=== PATIENT | male | born 1965 | race Caucasian/White ===

== ENCOUNTER 2017-10-17 08:10 | Emergency (ER) | payer OTHER, BC ==
--- NOTE | 2017-10-17 08:32 | EDM.PDOC ---
ED HPI GENERAL MEDICAL PROBLEM - General Chief Complaint: Upper Extremity Injury/Pain Stated Complaint: RIGHT ELBOW INJURY Time Seen by Provider: 10/17/17 08:29 - History of Present Illness INITIAL COMMENTS - FREE TEXT/NARRATIVE: 51-year-old male presents emergency room with right elbow pain. This started last night after he picked up a bucket of oil. The patient developed significant discomfort over his medial epicondyle. He has significant pain when he supinates his hand he also has some discomfort with flexion and extension of his wrist and sometimes with movement of the ulnar digits. Patient denies prior history of this in the past. He did try some Advil this morning, he took a single pill, this has not helped. Right Elbow Pain Score (Numeric/FACES): 5 - Related Data Allergies Allergy/AdvReac Type Severity Reaction Status Date / Time No Known Allergies Allergy Verified 10/17/17 08:17 Home Meds: Home Meds Aspirin [Halfprin] 81 mg PO DAILY 06/21/15 [History] Levothyroxine [Synthroid] 50 mcg PO ACBREAKFAST 06/21/15 [History] Omeprazole 20 mg PO DAILY 06/21/15 [History] SitaGLIPtin [Januvia] 100 mg PO DAILY 06/21/15 [History] Multivitamins,Therapeutic [Thera] 1 each PO WITHBREAKFAST tablet 06/13/16 [Rx] Ramipril 2.5 mg PO DAILY 10/17/17 [History] Past Medical History Other HEENT History: problems with earwax Cardiovascular History: Reports: High Cholesterol, Other (See Below) Other Cardiovascular History: "plug in my heart"----states never closed at Respiratory History: Reports: Sleep Apnea Other Respiratory History: c-pap at [facility] since 2004. Gastrointestinal History: Reports: GERD Other Gastrointestinal History: takes medication for Gerd; DX 2004. 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 Denies any deficits from the stroke. Endocrine/Metabolic History: Reports: Diabetes, Type II Other Endocrine/Metabolic History: For DM "takes a pill" and checks his blood sugar "about twice a week". Checked BS of Saturday and it was 100. Diagnosed at 2005. Diagnosed w/ Thyroid disease "about the same time". Hematologic History: Reports: Anemia, Iron Deficiency - Past Surgical History Cardiovascular Surgical History: Reports: Other (See Below) Musculoskeletal Surgical History: Reports: Arthroscopic Knee Social & Family History - Family History Oncologic: Reports: Bladder - Tobacco Use Smoking Status *Q: Never Smoker Years of Tobacco use: 15 Packs/Tins Daily: 1 Month Tobacco Last Used: 11/2013 Second Hand Smoke Exposure: No - Recreational Drug Use Recreational Drug Use: No - Living Situation & Occupation Living situation: Reports: Single, with Family Occupation: Employed Review of Systems - Review of Systems Review Of Systems: See Below Constitutional: Reports: No Symptoms Respiratory: Reports: No Symptoms Cardiovascular: Reports: No Symptoms GI/Abdominal: Reports: No Symptoms ED EXAM, GENERAL - Physical Exam Exam: See Below Exam Limited By: No Limitations General Appearance: Alert, No Apparent Distress Respiratory/Chest: No Respiratory Distress, Lungs Clear, Normal Breath Sounds Cardiovascular: Regular Rate, Rhythm, No Edema, No Murmur Extremities: Other (Examination of his right elbow show some discomfort over the medial epicondyle this is aggravated with supination especially against resistance when he holds his pinky and thumb together he has good strength however it does cause some discomfort over the medial epicondyle. Full flexion and extension of his wrist causes pain in the same areas Tinel's sign is negative. He has full motion of his digits however has some discomfort with moving the ring and pinky fingers the discomfort is over the medial epicondyle) Neurological: Alert, Oriented, Normal Cognition Course - Vital Signs Last Recorded V/S: Last Vital Signs Temp 35.6 C 10/17/17 08:14 Pulse 69 10/17/17 08:14 Resp 18 10/17/17 08:14 BP 139/93 H 10/17/17 08:14 Pulse Ox 95 10/17/17 08:14 - Re-Assessments/Exams Free Text/Narrative Re-Assessment/Exam: 10/17/17 09:21 X-ray examination is negative for acute fracture dislocation no bony changes noted he may have a little bit of medial soft tissue swelling. Patient will be started on a tennis elbow splint he'll be started on Naprosyn with follow-up the clinic early next week. 10/17/17 09:51 The patient's med list is been adjusted as multiple medications including blood thinners on his list that he has not been taking and is not aware of taking. Departure - Departure Time of Disposition: 09:22 Disposition: Home, Self-Care 01 Clinical Impression: Injury of right elbow, Strain of elbow, right - Discharge Information Referrals: Thuy Coleman, FOLDING MACHINE TENDER [Primary Care Provider] - Forms: ED Department Discharge Additional Instructions: Return to the emergency room with any questions problems or worsening symptoms. Follow up with your regular provider early next week. You have been started on Naprosyn take one twice daily with meals. Do not take any Aleve or ibuprofen with this. Discontinue this medication if it causes stomach upset. Try a tennis elbow splint.
--- NOTE | 2017-10-17 09:18 | CR ---
Right elbow: Four views of the right elbow were obtained. Comparison: No previous study. No joint effusion is seen. Joint spaces are preserved. No acute fracture or other bony abnormality is seen. Impression: 1. No bony abnormality is identified on right elbow study. Diagnostic code #1
[2017-10-17 10:33] VITALS: BP 134/90
== END 2017-10-17 10:15 | disposition home or self-care (01) ==
LOC: JD.ED 08:10
DX: S59.801A Other specified injuries of right elbow, initial encounter (principal); G47.30 Sleep apnea, unspecified; E78.00 Pure hypercholesterolemia, unspecified; K21.9 Gastro-esophageal reflux disease without esophagitis; E11.9 Type 2 diabetes mellitus without complications; Z79.82 Long term (current) use of aspirin; Z79.899 Other long term (current) drug therapy; X50.0XXA Overexertion from strenuous movement or load, initial encounter; Y99.0 Civilian activity done for income or pay
CPT/HCPCS: 73080-26-RT; 73080-RT; 99283; 99284

== ENCOUNTER 2017-12-31 09:43 | Emergency (ER) | payer OTHER, BC ==
[2017-12-31 10:13] VITALS: BP 144/90
--- NOTE | 2017-12-31 12:32 | CR ---
Right humerus: Two views of the right humerus were obtained. Joint space narrowing and mild inferior spurring is incidentally noted within the acromioclavicular joint. No fracture or other abnormality is appreciated. Impression: 1. Incidental findings as noted above. 2. No bony abnormality is seen within the right humerus. Diagnostic code #2
--- NOTE | 2017-12-31 12:46 | EDM.PDOC ---
ED HPI GENERAL MEDICAL PROBLEM - General Chief Complaint: Upper Extremity Injury/Pain Stated Complaint: R ARM PAIN Time Seen by Provider: 12/31/17 10:39 - History of Present Illness INITIAL COMMENTS - FREE TEXT/NARRATIVE: 52-year-old male presents emergency room with right arm pain. 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 He felt a pop in his right upper arm area and this reminded him of his biceps tear he had on the left a couple months ago. In between his biceps tear on the left and now I've seen this patient with tennis elbow and he's doing much better with this using his tennis elbow band. Right Upper Arm Pain Score (Numeric/FACES): 1 - Related Data Allergies Allergy/AdvReac Type Severity Reaction Status Date / Time No Known Allergies Allergy Verified 12/31/17 10:03 Home Meds: Home Meds Aspirin [Halfprin] 81 mg PO DAILY 06/21/15 [History] Levothyroxine [Synthroid] 75 mcg PO ACBREAKFAST 06/21/15 [History] Omeprazole 20 mg PO DAILY 06/21/15 [History] SitaGLIPtin [Januvia] 100 mg PO DAILY 06/21/15 [History] Multivitamins,Therapeutic [Thera] 1 each PO WITHBREAKFAST tablet 06/13/16 [Rx] Ramipril 2.5 mg PO DAILY 10/17/17 [History] Past Medical History Other HEENT History: problems with earwax Cardiovascular History: Reports: High Cholesterol, Other (See Below) Other Cardiovascular History: "plug in my heart"----states never closed at Respiratory History: Reports: Sleep Apnea Other Respiratory History: c-pap at [facility] since 2004. Gastrointestinal History: Reports: GERD Other Gastrointestinal History: takes medication for Gerd; DX 2004. 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 Denies any deficits from the stroke. Endocrine/Metabolic History: Reports: Diabetes, Type II Other Endocrine/Metabolic History: For DM "takes a pill" and checks his blood sugar "about twice a week". Checked BS of Saturday and it was 100. Diagnosed at 2004. Diagnosed w/ Thyroid disease "about the same time". Hematologic History: Reports: Anemia, Iron Deficiency - Past Surgical History Head Surgeries/Procedures: Reports: None Cardiovascular Surgical History: Reports: Other (See Below) Musculoskeletal Surgical History: Reports: Arthroscopic Knee Oncologic Surgical History: Reports: None Social & Family History - Family History Oncologic: Reports: Bladder - Tobacco Use Smoking Status *Q: Unknown Ever Smoked Years of Tobacco use: 15 Packs/Tins Daily: 1 Month Tobacco Last Used: 11/2013 Second Hand Smoke Exposure: No - Caffeine Use Caffeine Use: Reports: Coffee - Recreational Drug Use Recreational Drug Use: No - Living Situation & Occupation Living situation: Reports: Single, with Family Occupation: Employed Review of Systems - Review of Systems Review Of Systems: See Below Constitutional: Reports: No Symptoms Respiratory: Reports: No Symptoms Cardiovascular: Reports: No Symptoms GI/Abdominal: Reports: No Symptoms ED EXAM, GENERAL - Physical Exam Exam: See Below (f) General Appearance: Alert, No Apparent Distress Head: Atraumatic, Normocephalic Neck: Normal Inspection, Supple, Non-Tender, Full Range of Motion Respiratory/Chest: No Respiratory Distress, Lungs Clear, Normal Breath Sounds Cardiovascular: Regular Rate, Rhythm, No Edema, No Murmur Extremities: Other (Semination his right upper arm shows tenderness about a third of the way down from the shoulder anterior he said a large muscle accumulation of his biceps distally, the so-called Carlos muscle. Neurovascular status of the extremities normal.) Course - Vital Signs Last Recorded V/S: Last Vital Signs Temp 36.7 C 12/31/17 10:10 Pulse 90 12/31/17 10:10 Resp BP 144/90 H 12/31/17 10:10 Pulse Ox 97 12/31/17 10:10 - Orders/Labs/Meds Orders: Active Orders 24 hr Category Date Time Status Durable Medical Equipment for Discharge [DME for Oth 12/31/17 12:46 Ordered Discharge] [COMM] Stat - Re-Assessments/Exams Free Text/Narrative Re-Assessment/Exam: 12/31/17 12:48 X-ray nondiagnostic case discussed with Dr. Valiente table treated like a proximal biceps tear. Patient be placed in a sling wear for 2 weeks then advance activity as tolerated the patient will follow-up with Dr. Valiente today in the meantime. Departure - Departure Time of Disposition: 12:49 Disposition: Home, Self-Care 01 Clinical Impression: Biceps muscle tear - Discharge Information Referrals: Thuy Coleman PRINTED CIRCUIT BOARDS LAMINATOR [Primary Care Provider] - Forms: ED Department Discharge Additional Instructions: Return to the emergency room with any questions problems worsening symptoms. Follow up with Dr. Valiente a next week. Wear the sling for 2 weeks then gently increase activity as tolerated. Tylenol or and/or Motrin as needed for discomfort. No heavy lifting. No activity with your right arm. - My Orders Last 24 Hours: My Active Orders 12/31/17 12:46 Durable Medical Equipment for Discharge [DME for Discharge] [COMM] Stat - Assessment/Plan Last 24 Hours: My Active Orders 12/31/17 12:46 Durable Medical Equipment for Discharge [DME for Discharge] [COMM] Stat
== END 2017-12-31 13:06 | disposition home or self-care (01) ==
LOC: JD.ED 09:43
DX: S46.211A Strain of muscle, fascia and tendon of other parts of biceps, right arm, initial encounter (principal); E78.00 Pure hypercholesterolemia, unspecified; G47.30 Sleep apnea, unspecified; E11.9 Type 2 diabetes mellitus without complications; K21.9 Gastro-esophageal reflux disease without esophagitis; Z72.0 Tobacco use; Z79.84 Long term (current) use of oral hypoglycemic drugs; Z79.82 Long term (current) use of aspirin; Z79.899 Other long term (current) drug therapy; X50.0XXA Overexertion from strenuous movement or load, initial encounter
CPT/HCPCS: 73060-26-RT; 73060-RT; 99283

== ENCOUNTER 2019-07-01 15:31 | Emergency (ER) | payer BC ==
[2019-07-01 15:45] VITALS: BP 148/105
[2019-07-01] MEDS ORDERED: HYDROmorphone 1 MG/ML Syringe IVPUSH ONE (15:45)
[2019-07-01] MEDS ORDERED: Ketorolac 30 MG/ML SDV IVPUSH SCH (15:45)
[2019-07-01] MEDS ORDERED: Sodium Chloride 0.9% 1,000 ML IV SCH (15:45)
[2019-07-01] MEDS ORDERED: Metoclopramide 10 MG/2 ML SDV IVPUSH ONE (15:46)
--- NOTE | 2019-07-01 15:50 | EDM.PDOC ---
ED HPI GENERAL MEDICAL PROBLEM - General Chief Complaint: Flank Pain Stated Complaint: POSS KIDNEY STONE Time Seen by Provider: 07/01/19 15:45 Source of Information: Reports: Patient History Limitations: Reports: No Limitations - History of Present Illness INITIAL COMMENTS - FREE TEXT/NARRATIVE: 53-year-old male presents to the ED with left flank pain that started about 11: 00 this morning. Over the last hour the pain is intensified tremendously. He is nauseated but has not vomited. Pain is rating into the left upper abdomen towards the left lower groin. He feels he occasional twinge of pain in his left testicle. He has no history of kidney stones himself but his twin brothers had stones at least twice in the past. His other brothers of also had kidney stones. Only past abdominal surgeries that of a laparoscopic cholecystectomy. Pain is constant with a colicky component. Makes him break out in a sweat. The pain is 10 out of 10. He did notice the urine seemed to be darker yesterday and colored was suspicious that might be blood in it. Onset: Today, Sudden Onset Date: 07/01/19 Onset Time: 11:00 Duration: Hour(s): Location: Reports: Abdomen, Back Quality: Reports: Ache, Sharp, Stabbing, Other Severity: Severe (Pain is constant but does have a colicky component) Improves with: Reports: None ( 10 out of 10) Worsens with: Reports: None Context: Reports: Other (Spontaneous occurrence while at work this morning). Denies: Activity, Exercise, Lifting, Sick Contact, Trauma Associated Symptoms: Reports: Nausea/Vomiting, Other. Denies: Headaches, Loss of Appetite, Malaise, Rash, Seizure, Shortness of Breath, Syncope Treatments DOMESTIC CLEANER: Reports: Other (see below) (Feeling of need to void but is unable to do so none.) Left Lower Abdominal Pain Score (Numeric/FACES): 10 - Related Data Allergies Allergy/AdvReac Type Severity Reaction Status Date / Time No Known Allergies Allergy Verified 07/01/19 15:44 Home Meds: Home Meds Levothyroxine [Synthroid] 75 mcg PO ACBREAKFAST 06/21/15 [History] Omeprazole 20 mg PO DAILY 06/21/15 [History] Ramipril 2.5 mg PO DAILY 10/17/17 [History] Rosuvastatin [Crestor] 10 mg PO DAILY 07/01/19 [History] metFORMIN [Glucophage XR] 750 mg PO DAILY 07/01/19 [History] Past Medical History Other HEENT History: problems with earwax Cardiovascular History: Reports: High Cholesterol, Other (See Below) Other Cardiovascular History: "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 Gastrointestinal History: Reports: GERD Other Gastrointestinal History: takes medication for Gerd; DX 2004. 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 Denies any deficits from the stroke. Endocrine/Metabolic History: Reports: Diabetes, Type II Other Endocrine/Metabolic History: For DM "takes a pill" and checks his blood sugar "about twice a week". Checked BS of Saturday and it was 100. Diagnosed at 2004. Diagnosed w/ Thyroid disease "about the same time". Hematologic History: Reports: Anemia, Iron Deficiency - Past Surgical History Head Surgeries/Procedures: Reports: None Cardiovascular Surgical History: Reports: Other (See Below) Musculoskeletal Surgical History: Reports: Arthroscopic Knee Oncologic Surgical History: Reports: None Social & Family History - Family History Oncologic: Reports: Bladder - Caffeine Use Caffeine Use: Reports: Coffee - Living Situation & Occupation Living situation: Reports: Single, with Family Occupation: Employed ED ROS GENERAL - Review of Systems Review Of Systems: See Below Constitutional: Reports: Decreased Appetite. Denies: Fever, Chills, Malaise, Weakness, Fatigue, Weight Loss HEENT: Reports: Glasses Respiratory: Reports: No Symptoms Cardiovascular: Reports: No Symptoms Endocrine: Reports: No Symptoms, High Glucose (Is a type II diabetic.) GI/Abdominal: Reports: Abdominal Pain. Denies: Diarrhea (Left upper abdominal pain starting in his left flank rating down towards the left groin.), Decreased Appetite, Flatus, Hematemesis : Reports: Frequency Musculoskeletal: Reports: Back Pain (Left flank pain) Skin: Reports: No Symptoms Neurological: Reports: No Symptoms Psychiatric: Reports: No Symptoms Hematologic/Lymphatic: Reports: No Symptoms Immunologic: Reports: No Symptoms ED EXAM, RENAL/ - Physical Exam Exam: See Below Exam Limited By: No Limitations General Appearance: Alert, WD/WN, Moderate Distress (Is in quite a bit of pain and is diaphoretic.) Eye Exam: Bilateral Eye: Normal Inspection Throat/Mouth: Normal Inspection, Normal Lips, Normal Teeth, Normal Oropharynx Head: Atraumatic, Normocephalic Respiratory/Chest: No Respiratory Distress, Lungs Clear, Normal Breath Sounds, No Accessory Muscle Use, Chest Non-Tender Cardiovascular: Normal Peripheral Pulses, No Edema, No Gallop, No Murmur, No Rub , Tachycardia (Seen tachycardia of 1 42/m.) GI/Abdominal: Soft (Bowel sounds are absent in all 4 quadrants), Tender ( Diffusely tender), Abnormal Bowel Sounds. No: Guarding ( and slightly tympanitic to percussion throughout. No localized peritoneal signs.), Rigid, Rebound Back Exam: Normal Inspection, Full Range of Motion, CVA Tenderness (L). No: CVA Tenderness (R) (Mild inferior to the left kidney.) Extremities: Normal Inspection, Normal Range of Motion, Non-Tender Neurological: Alert, Oriented, CN II-XII Intact, Normal Cognition Psychiatric: Anxious, Other Skin Exam: Diaphoretic (In obvious pain.) Course - Vital Signs Last Recorded V/S: Last Vital Signs Temp 36.9 C 07/01/19 15:40 Pulse 148 H 07/01/19 15:40 Resp 18 07/01/19 15:40 BP 148/105 H 07/01/19 15:40 Pulse Ox 96 07/01/19 15:40 - Orders/Labs/Meds Orders: Active Orders 24 hr Category Date Time Status Ketorolac [Toradol] Med 07/01/19 15:45 Active 30 mg IVPUSH ONETIME Sodium Chloride 0.9% [Normal Saline] 1,000 ml Med 07/01/19 15:45 Active IV ASDIRECTED Medication Orders Sodium Chloride (Normal Saline) 1,000 mls @ 150 mls/hr IV ASDIRECTED TREE Last Admin: 07/01/19 16:03 Dose: 150 mls/hr Ketorolac Tromethamine (Toradol) 30 mg IVPUSH ONETIME TREE Last Admin: 07/01/19 16:23 Dose: 30 mg Labs: Laboratory Tests 07/01/19 Range/Units 16:34 Urine Color Light yellow (Yellow) Urine Appearance Clear (Clear) Urine pH 6.0 (5.0-8.0) Ur Specific [place]cl[place] 1.020 (1.005-1.030) Urine Protein Negative (Negative) Urine Glucose (UA) Negative (Negative) Urine Ketones Negative (Negative) Urine Occult Blood 3+ H (Negative) Urine Nitrite Negative (Negative) Urine Bilirubin Negative (Negative) Urine Urobilinogen 0.2 (0.2-1.0) Ur Leukocyte Esterase Negative (Negative) Urine RBC 20-30 H (0-5) /hpf Urine WBC 0-5 (0-5) /hpf Ur Squamous Epith Cells 0-5 (0-5) /hpf Amorphous Sediment Few H (NOT SEEN) /hpf Urine Bacteria Few (FEW) /hpf Urine Mucus Few (FEW) /hpf Meds: Medications Generic Name Dose Route Start Last Admin Trade Name Freq PRN Reason Stop Dose Admin Sodium Chloride 1,000 mls @ 150 mls/hr 07/01/19 15:45 07/01/19 16:03 Normal Saline IV 150 mls/hr ASDIRECTED TREE Administration Ketorolac Tromethamine 30 mg 07/01/19 15:45 07/01/19 16:23 Toradol IVPUSH 30 mg ONETIME TREE Administration Discontinued Medications Generic Name Dose Route Start Last Admin Trade Name Freq PRN Reason Stop Dose Admin Hydromorphone HCl 1 mg 07/01/19 15:45 07/01/19 16:03 Dilaudid IVPUSH 07/01/19 15:46 1 mg ONETIME ONE Administration Metoclopramide HCl 10 mg 07/01/19 15:46 07/01/19 16:03 Reglan IVPUSH 07/01/19 15:47 10 mg ONETIME ONE Administration - Radiology Interpretation Free Text/Narrative:: 53-year-old male presents to the ED with acute onset of left flank pain about 11 :00 this morning. Pain became much worse about an hour ago words now radiating into the left upper abdomen is occasionally down towards the left groin. History is compatible with renal colic. Is a twin brothers had kidney stones twice. He has several other brothers have had kidney stones as well. He has no past history of kidney stones himself. He feels nauseated but has not vomited. Does feel urinary frequency but unable to void. Urine looked a little darker than normal yesterday was suspicious it might be blood in it. Examination reveals very tender abdomen left upper quadrant and left midabdomen. He is holding his breath however as the pain is quite bad. Sounds are absent in all 4 quadrants. Suspect renal colic. Plan: IV normal saline at 150 mils per hour. Given Reglan 10 mg IV with Toradol 30 mg IV and Dilaudid 1 mg IV for acute pain relief. Urinalysis will be collected when one becomes available. CT the abdomen will be done per renal protocol. - Re-Assessments/Exams Free Text/Narrative Re-Assessment/Exam: 07/01/19 16:39 CT of the abdomen and pelvis has been done per renal protocol. He'll say small hiatal hernia. Lung bases appear clear. Previous cholecystectomy. Liver appears homogeneous. Pancreas appears normal. Common bile duct is difficult to identify. Stomach is full of food. He does have a slightly dilated aorta above the renal arteries at 4 cm i.e. aneurysm. He does have a dilated left ureter and slight hydronephrosis of the left kidney. The stone however has entered the urinary bladder. This stone appears to be about 1.2 mm in size. There is one small stone in the right kidney less than 1 mm However there appears to be a solid tumor on the upper outer pole of the right kidney. Therefore renal contrast will be given per renal protocol 07/01/19 17:57 change in plans. After I discussed the case with the radiologist he felt that we would be better served to look at the abnormality of the right kidney with MRI versus IV contrast CT. The procedure was canceled I will get the patient booked for an MRI with and without contrast as an outpatient. We did establish that he does have an abdominal aortic aneurysm as well. The renal CT is now back and read by the radiologist. He identifies a slightly prominent collecting system and left ureter down to the bladder. This finding is caused by a curvilinear stone at the UVJ measuring 8.6 mm x 1.9 mm. He identifies 2 small nonobstructing calculi within the inferior left kidney. 2 small nonobstructing calculi are noted within the inferior right kidney. Small nonobstructing stone is noted within the superior right kidney as well. Cyst is noted within the left kidney measuring approximately 2.7 cm in size. Slight hyperdense lesion is noted within the right mid kidney measuring 1.3 cm in size small low density finding is noted within the left lobe of the liver measuring 5 mm this is felt about with a small liver cyst. No additional abdomen maladies appears within the liver. Gallbladder is absent. Spleen is within normal limits. Adrenal glands show no nodules. Patient said previous cholecystectomy as mentioned above. The distal aorta is mildly aneurysmal with an AP dimension being 3.4 cm in size. This is a little less than what I measured. Common iliac arteries are also prominent in size measuring 2.1 cm on the right and 2.1 cm on the left. There is mild atherosclerotic calcification seen within the aorta and iliac vessels. Skeletal diet scattered diverticuli are seen throughout the colon without inflammatory change of diverticulitis. Appendix is not definitely visualized. No free fluid or inflammatory changes are seen in the pelvis. Bone window settings were reviewed and shows spondylitic defects at L5-S1 causing mild spondylosis listhesis at the L5-S1 level measuring about 5 mm. Posterior disc space narrowing is noted at this level with vacuum phenomenon. Patient remains pain-free and will be discharged to home. He is advised to follow-up with Thuy Coleman within a day or 2 of having his MRI of his abdomen completed. He will need yearly ultrasounds of his aorta to follow along aneurysmal development. Departure - Departure Time of Disposition: 17:35 Disposition: Home, Self-Care 01 Condition: Fair Clinical Impression: Renal colic on left side, Abnormal finding on diagnostic imaging of right kidney, Abdominal aortic aneurysm (AAA), 35-39 mm diameter - Discharge Information *PRESCRIPTION DRUG MONITORING PROGRAM REVIEWED*: Not Applicable *COPY OF PRESCRIPTION DRUG MONITORING REPORT IN PATIENT DUSTIN: Not Applicable Instructions: Abdominal Aortic Aneurysm, [id number], Renal Colic, Easy-to- Read, Kidney Stones, [id number] Referrals: Thuy Coleman, MUSICAL THERAPIST [Primary Care Provider] - Forms: ED Department Discharge Additional Instructions: Evaluation the emergency room today in regards to onset of left flank pain then rating down towards the left groin. This history was compatible with a kidney stone which you've not had any history of. CT of the abdomen confirms that there is a kidney stone on the left side that has just entered the urinary bladder. It is about 1.2 mm in size. No further stones in the left kidney but it does have a cyst on the upper pole which is of no consequence. On the right side there is a 1 mm stone within the kidney tissue which may or may not ever become a problem. However there is also a round lesion in the upper pole of the right kidney which is concerning for possible tumor. Note to be a cyst that has bled within itself or a angiomyolipoma which are common lesions in the kidney and are not malignant. However after discussion with the radiologist he feels the best way to visualize this nodule is with MRI of the abdomen which will be arranged through the radiology department. We will have them call you tomorrow morning to set up an appointment time and it's convenient for both of you. This will tell us whether or not there is a problem with the kidney or not. In the meantime he will pass the stone on the left side without any further issues. The other finding on CT scan was a mildly dilated abdominal aorta compatible with an aortic aneurysm that measures about 39-40 mm in size. They are not worrisome until the become greater than 50 mm or 5 cm in size. Therefore he will require an ultrasound on her aorta every year for monitoring purposes. You will need to follow-up with your primary care provider a day or 2 after completion of the MRI on her abdomen to determine whether or not further investigation or urology consultation is necessary in regards to the lesion identified in the right kidney. - My Orders Last 24 Hours: My Active Orders 07/01/19 15:45 Ketorolac [Toradol] 30 mg IVPUSH ONETIME Sodium Chloride 0.9% [Normal Saline] 1,000 ml IV ASDIRECTED - Assessment/Plan Last 24 Hours: My Active Orders 07/01/19 15:45 Ketorolac [Toradol] 30 mg IVPUSH ONETIME Sodium Chloride 0.9% [Normal Saline] 1,000 ml IV ASDIRECTED
--- NOTE | 2019-07-01 17:30 | CT ---
CT abdomen and pelvis Technique: Multiple axial sections were obtained through the abdomen and pelvis (without contrast). Study has been performed as a ureteral stone protocol. Findings: Noncontrast study shows slightly prominent collecting system and left ureter down to the bladder. This finding is caused by a curvilinear stone at the UVJ measuring 8.6 mm x 1.9 mm. 2 small nonobstructing calculi are seen within the inferior left kidney. 2 small nonobstructing calculi are noted within the inferior right kidney. Small nonobstructing stone is noted within the superior right kidney. Cyst is noted within the left kidney measuring approximately 2.7 cm in size. Slightly hyperdense lesion is noted within the mid right kidney measuring about 1.3 cm in size. No additional renal abnormalities are identified. Visualized lung bases show nothing acute. Small low density finding is noted within the left lobe of the liver measuring 5 mm. This is felt compatible with a small liver cyst. No additional abnormality is appreciated within the liver. Spleen is within normal limits. Adrenal glands show no nodule. Surgical clips are seen from prior cholecystectomy. Pancreas is within normal limits. Distal aorta is mildly aneurysmal with AP dimension being 3.4 cm in size. Common iliac arteries are also prominent in size measuring 2.1 cm on the right and 2.1 cm on the left. Mild atherosclerotic calcification is seen within the aorta and iliac vessels. No retroperitoneal adenopathy or mesenteric abnormalities are seen. Scattered diverticuli are seen throughout the colon without inflammatory change of diverticulitis. Appendix not definitely visualized. No free fluid or inflammatory change is seen. Bone window settings were reviewed which shows spondylitic defects at L5-S1 causing mild spondylolisthesis at L5-S1 measuring about 5 mm. Posterior disc space narrowing is noted at L5-S1 with vacuum phenomena. Impression: 1. Obstructing curvilinear stone within the left distal ureter at the UVJ. This measures 1.9 x 8.6 mm. 2. Small nonobstructing calculi within both kidneys. 3. Cyst within the left kidney. Hyperdense lesion within the right kidney. Hyperdense lesion most likely represents a hemorrhagic cyst although there is an occasional hyperdense renal cell carcinoma. MRI would be needed to further evaluate if clinically indicated. 4. Colonic diverticuli without inflammatory change of diverticulitis. 5. Other findings believed to be incidental as noted above. Diagnostic code #3
== END 2019-07-01 17:54 | disposition home or self-care (01) ==
LOC: JD.ED 15:31
DX: N13.2 Hydronephrosis with renal and ureteral calculous obstruction (principal); I71.4 Abdominal aortic aneurysm, without rupture; E78.00 Pure hypercholesterolemia, unspecified; E11.9 Type 2 diabetes mellitus without complications; M19.90 Unspecified osteoarthritis, unspecified site; Z79.899 Other long term (current) drug therapy; Z79.890 Hormone replacement therapy; Z79.84 Long term (current) use of oral hypoglycemic drugs; Z86.2 Personal history of diseases of the blood and blood-forming organs and certain disorders involving the immune mechanism
CPT/HCPCS: 74176; 81001; 96361; 96374; 96375; 99284; J1170; J1885; J2765; J7040; 99285